=== PATIENT | male | born 1990 | race Caucasian/White ===

== ENCOUNTER 2023-03-24 07:55 | Outpatient (CLI) | payer OTHER, SELFPAY ==
[2023-03-24 08:18] LABS: Basophils % 0.7 %; Eosinophils # 0.2 10^3/uL (0.0-0.8); Eosinophils % 2.6 %; Hematocrit 45.4 % (37-53); Lymphocytes # 1.1 10^3/uL (0.8-4.8); Lymphocytes % 18.7 %; Mean Corpuscular HGB Conc 33.9 g/dL (30-55); Mean Corpuscular Hemoglobin 29.8 pg (27-33); Monocytes # 0.6 10^3/uL (0.2-0.9); Monocytes % 9.4 %; Neutrophils % 68.1 %; Nucleated Red Blood Cells % 0 %; Platelet Count 243 10^3/cmm (157-399); Red Blood Count 5.16 10^6/uL (3.85-5.65); Red Cell Distribution Width 13.1 % (12.1-15.1); White Blood Count 5.87 10^3/uL (3.29-11.43)
[2023-03-24 08:45] LABS: Alanine Aminotransferase 47 U/L (0-41); Albumin Level 4.1 g/dL (3.5-5.2); Alkaline Phosphatase 73 U/L (40-130); Aspartate Amino Transferase 27 U/L (0-40); Blood Urea Nitrogen 8 mg/dL (6-20); Calcium 9.3 mg/dL (8.5-10.5); Carbon Dioxide 26 mmol/L (22-29); Chloride 100 mmol/L (98-107); Chol HDL Ratio 8.76 mg/dL (1.0-5.00); Cholesterol 184 mg/dL (0-200); Globulin 2.9 g/dL (1.3-4.6); Glomerular Filtration Rate 110.7 mL/min (90-130); Glucose 273 mg/dL (65-115); HDL Cholesterol 21 mg/dL (60-100); Total Bilirubin 0.5 mg/dL (0.15-1.2); Triglycerides 647 mg/dL (0-150)
[2023-03-24 08:46] LABS: Potassium 3.8 mmol/L (3.5-5.1)
[2023-03-24 09:21] LABS: LDL Cholesterol Direct 89 mg/dL (0-100)
[2023-03-24 09:42] LABS: Anion Gap 13.8 (5-19); Osmolality Calculated 290 mOsm/kg (285-295); Sodium 136 mmol/L (136-145)
== END 2023-03-24 07:56 | disposition home or self-care (01) ==
LOC: LAB 07:56
PROVIDERS: Visit Provider Internal Medicine
DX: R79.89 Other specified abnormal findings of blood chemistry (principal); E23.7 Disorder of pituitary gland, unspecified; E03.9 Hypothyroidism, unspecified
CPT/HCPCS: 36415; 80053; 80061; 83721; 84403; 85025

== ENCOUNTER 2023-04-02 09:27 | Outpatient (CLI) | payer OTHER, SELFPAY ==
[2023-04-02 10:14] LABS: Viscosity Semen Normal
[2023-04-02 10:19] LABS: Epithelial Count Semen 0-4 /hpf; PH Semen 7.5 (7.0-8.0); Pathology Referral Yes; Red Blood Count Semen 0-4 /hpf; White Blood Count Semen 0-4 /hpf
[2023-04-02 10:24] LABS: Sperm Immotility 85 % (50-60); Sperm Non-Progressive Motility 10 % (5-10); Sperm Progressive Motility 5 % (31-34)
[2023-04-02 16:25] LABS: Sperm Vitality-% Live Sperm 65 %
[2023-04-02 19:55] LABS: Side 1 134
[2023-04-02 19:56] LABS: Side 2 146
== END 2023-04-02 09:28 | disposition home or self-care (01) ==
LOC: LAB 09:32
PROVIDERS: PCP Internal Medicine; Visit Provider Internal Medicine
DX: N46.9 Male infertility, unspecified (principal); E23.7 Disorder of pituitary gland, unspecified; R79.89 Other specified abnormal findings of blood chemistry
CPT/HCPCS: 80503; 89320

== ENCOUNTER 2023-07-09 13:22 | Outpatient (CLI) | payer OTHER, SELFPAY ==
[2023-07-09 13:50] LABS: Basophils % 0.7 %; Eosinophils # 0.2 10^3/uL (0.0-0.8); Eosinophils % 3.9 %; Hematocrit 42.5 % (37-53); Lymphocytes # 1.2 10^3/uL (0.8-4.8); Lymphocytes % 29.6 %; Mean Corpuscular HGB Conc 33.6 g/dL (30-55); Mean Corpuscular Hemoglobin 28.3 pg (27-33); Mean Corpuscular Volume 84.2 fl (82-101); Mean Platelet Volume 10.4 fL (7.4-10.4); Monocytes # 0.4 10^3/uL (0.2-0.9); Monocytes % 8.7 %; Neutrophils # 2.34 10^3/uL (1.8-7.7); Neutrophils % 56.9 %; Nucleated Red Blood Cells % 0 %; Platelet Count 264 10^3/cmm (157-399); Red Blood Count 5.05 10^6/uL (3.85-5.65); Red Cell Distribution Width 12.7 % (12.1-15.1); White Blood Count 4.12 10^3/uL (3.29-11.43)
[2023-07-09 14:10] LABS: Alanine Aminotransferase 40 U/L (0-41); Albumin Level 4.1 g/dL (3.5-5.2); Alkaline Phosphatase 70 U/L (40-130); Anion Gap 16.2 (5-19); Aspartate Amino Transferase 23 U/L (0-40); Blood Urea Nitrogen 11 mg/dL (6-20); Calcium 9.3 mg/dL (8.5-10.5); Carbon Dioxide 23 mmol/L (22-29); Chloride 106 mmol/L (98-107); Chol HDL Ratio 5.73 mg/dL (1.0-5.00); Cholesterol 149 mg/dL (0-200); Glomerular Filtration Rate 129.1 mL/min (90-130); Glucose 173 mg/dL (65-115); HDL Cholesterol 26 mg/dL (60-100); LDL Cholesterol Calculated 58 mg/dL (50-129); LDL HDL Ratio 2.23 RATIO (0.00-3.22); Osmolality Calculated 296 mOsm/kg (285-295); Potassium 4.2 mmol/L (3.5-5.1); Sodium 141 mmol/L (136-145); Total Bilirubin 0.7 mg/dL (0.15-1.2); Total Protein 7.1 g/dL (6.6-8.7); Triglycerides 323 mg/dL (0-150)
[2023-07-09 14:16] LABS: Testosterone Total 494.9 ng/dL (249-836)
== END 2023-07-09 13:23 | disposition home or self-care (01) ==
LOC: LAB 13:24
PROVIDERS: PCP Internal Medicine; Visit Provider Internal Medicine
DX: N46.9 Male infertility, unspecified (principal); E23.7 Disorder of pituitary gland, unspecified; R79.89 Other specified abnormal findings of blood chemistry
CPT/HCPCS: 36415; 80053; 80061; 84403; 85025

== ENCOUNTER 2023-10-08 09:56 | Outpatient (CLI) | payer OTHER, SELFPAY ==
[2023-10-08 10:47] LABS: Alanine Aminotransferase 30 U/L (0-41); Albumin Level 4.2 g/dL (3.5-5.2); Alkaline Phosphatase 65 U/L (40-130); Anion Gap 13.2 (5-19); Aspartate Amino Transferase 18 U/L (0-40); Blood Urea Nitrogen 10 mg/dL (6-20); Carbon Dioxide 23 mmol/L (22-29); Chloride 102 mmol/L (98-107); Chol HDL Ratio 6.09 mg/dL (1.0-5.00); Cholesterol 140 mg/dL (0-200); Globulin 2.9 g/dL (1.3-4.6); Glomerular Filtration Rate 110.7 mL/min (90-130); Glucose 179 mg/dL (65-115); HDL Cholesterol 23 mg/dL (60-100); LDL Cholesterol Calculated 47 mg/dL (50-129); LDL HDL Ratio 2.04 RATIO (0.00-3.22); Osmolality Calculated 282 mOsm/kg (285-295); Potassium 4.2 mmol/L (3.5-5.1); Prostate Specific Antigen Scr 0.19 ng/mL (0-4); Sodium 134 mmol/L (136-145); Testosterone Total 619.2 ng/dL (249-836); Total Bilirubin 0.5 mg/dL (0.15-1.2); Total Protein 7.1 g/dL (6.6-8.7); Triglycerides 349 mg/dL (0-150)
[2023-10-08 11:10] LABS: Sperm Count 135.5 mill/mL (40-160); Viscosity Semen High Viscosity; Volume Semen 1.5 mL (2-5)
[2023-10-08 11:11] LABS: Epithelial Count Semen 0-4 /hpf; Pathology Referral Yes; Red Blood Count Semen Rare /hpf; Sperm Immotility 50 % (50-60); Sperm Progressive Motility 40 % (31-34); White Blood Count Semen 0-4 /hpf
[2023-10-08 11:12] LABS: Sperm Non-Progressive Motility 10 % (5-10)
== END 2023-10-08 09:57 | disposition home or self-care (01) ==
LOC: LAB 09:58
PROVIDERS: Visit Provider Internal Medicine
DX: E29.1 Testicular hypofunction (principal); R79.89 Other specified abnormal findings of blood chemistry; E03.9 Hypothyroidism, unspecified; E23.7 Disorder of pituitary gland, unspecified; N46.9 Male infertility, unspecified
CPT/HCPCS: 36415; 80053; 80061; 80503; 84403; 89320; G0103

== ENCOUNTER → 2023-10-12 10:05 | Outpatient (BNVA) | payer OTHER, SELFPAY | PROVIDERS: Visit Provider Internal Medicine | DX: N46.9 Male infertility, unspecified (principal); E23.7 Disorder of pituitary gland, unspecified | CPT/HCPCS: 36415; 85025 ==

== ENCOUNTER 2024-02-28 16:26 | Outpatient (CLI) | payer OTHER, SELFPAY ==
[2024-02-28 18:15] LABS: Estmated Average Glucose 143; Hemoglobin A1C 6.6 % (4.0-6.0)
[2024-02-28 18:26] LABS: Alanine Aminotransferase 37 U/L (0-41); Alkaline Phosphatase 69 U/L (40-130); Aspartate Amino Transferase 22 U/L (0-40); Blood Urea Nitrogen 9 mg/dL (6-20); Calcium 9.1 mg/dL (8.5-10.5); Carbon Dioxide 26 mmol/L (22-29); Chloride 104 mmol/L (98-107); Chol HDL Ratio 6.38 mg/dL (1.0-5.00); Cholesterol 153 mg/dL (0-200); Free T4 Free Thyroxine 1.16 ng/dL (0.82-1.77); Globulin 2.6 g/dL (1.3-4.6); Glucose 197 mg/dL (65-115); HDL Cholesterol 24 mg/dL (60-100); Osmolality Calculated 294 mOsm/kg (285-295); Sodium 140 mmol/L (136-145); Thyroid Stimulating Hormone 0.53 uIU/mL (0.27-4.20); Total Bilirubin 0.3 mg/dL (0.15-1.2); Total Protein 6.6 g/dL (6.6-8.7); Triglycerides 502 mg/dL (0-150)
[2024-02-28 18:27] LABS: Anion Gap 14.1 (5-19); Potassium 4.1 mmol/L (3.5-5.1)
[2024-02-28 18:40] LABS: LDL Cholesterol Direct 84 mg/dL (0-100)
== END 2024-02-28 16:27 | disposition home or self-care (01) ==
LOC: LAB 16:27
PROVIDERS: Visit Provider Internal Medicine
DX: E29.1 Testicular hypofunction (principal); E03.9 Hypothyroidism, unspecified; E23.7 Disorder of pituitary gland, unspecified; E11.9 Type 2 diabetes mellitus without complications
CPT/HCPCS: 36415; 80053; 80061; 83036; 83721; 84403; 84439; 84443

== ENCOUNTER → 2024-03-03 12:53 | Outpatient (BNVA) | payer OTHER, SELFPAY | PROVIDERS: Visit Provider Internal Medicine | DX: E29.1 Testicular hypofunction (principal); E03.9 Hypothyroidism, unspecified; E23.7 Disorder of pituitary gland, unspecified; N46.9 Male infertility, unspecified; E11.9 Type 2 diabetes mellitus without complications; R79.89 Other specified abnormal findings of blood chemistry; E66.9 Obesity, unspecified; Z79.85 Long-term (current) use of injectable non-insulin antidiabetic drugs; Z79.890 Hormone replacement therapy; Z68.41 Body mass index [BMI] 40.0-44.9, adult | CPT/HCPCS: 36415; 85025 ==

== ENCOUNTER 2024-05-29 15:18 | Outpatient (CLI) | payer OTHER, SELFPAY ==
[2024-05-29 15:56] LABS: Basophils # 0.1 10^3/uL (0.0-0.1); Basophils % 0.8 %; Eosinophils # 0.2 10^3/uL (0.0-0.8); Eosinophils % 3.7 %; Hematocrit 46.4 % (37-53); Lymphocytes % 16.6 %; Mean Corpuscular HGB Conc 33.4 g/dL (30-55); Mean Corpuscular Volume 86.7 fl (82-101); Monocytes # 0.8 10^3/uL (0.2-0.9); Monocytes % 12.9 %; Neutrophils # 3.91 10^3/uL (1.8-7.7); Neutrophils % 65.7 %; Nucleated Red Blood Cells % 0 %; Platelet Count 237 10^3/cmm (157-399); Red Blood Count 5.35 10^6/uL (3.85-5.65); Red Cell Distribution Width 12.6 % (12.1-15.1); White Blood Count 5.96 10^3/uL (3.29-11.43)
[2024-05-29 16:16] LABS: Estmated Average Glucose 203; Hemoglobin A1C 8.7 % (4.0-6.0)
[2024-05-29 16:21] LABS: Creatinine Urine, Random 138 mg/dL (39-259); Microalbum Creatinine Ratio Ur 22 mg/dL (0-20); Microalbumin Random Urine 3 ug/dL (0-20)
[2024-05-29 16:22] LABS: Alanine Aminotransferase 42 U/L (0-41); Albumin Level 4.4 g/dL (3.5-5.2); Alkaline Phosphatase 70 U/L (40-130); Anion Gap 14.9 (5-19); Aspartate Amino Transferase 36 U/L (0-40); Blood Urea Nitrogen 12 mg/dL (6-20); Calcium 9.3 mg/dL (8.5-10.5); Carbon Dioxide 25 mmol/L (22-29); Chloride 102 mmol/L (98-107); Chol HDL Ratio 5.76 mg/dL (1.0-5.00); Cholesterol 144 mg/dL (0-200); Globulin 2.9 g/dL (1.3-4.6); Glucose 223 mg/dL (65-115); HDL Cholesterol 25 mg/dL (60-100); LDL Cholesterol Calculated 58 mg/dL (50-129); LDL HDL Ratio 2.32 RATIO (0.00-3.22); Osmolality Calculated 293 mOsm/kg (285-295); Potassium 3.9 mmol/L (3.5-5.1); Sodium 138 mmol/L (136-145); Testosterone Total 384.3 ng/dL (249-836); Total Bilirubin 0.7 mg/dL (0.15-1.2); Total Protein 7.3 g/dL (6.6-8.7); Triglycerides 303 mg/dL (0-150)
== END 2024-05-29 15:19 | disposition home or self-care (01) ==
PROVIDERS: PCP Student in an Organized Health Care Education/Training Program; Visit Provider Internal Medicine
DX: E29.1 Testicular hypofunction (principal); E03.9 Hypothyroidism, unspecified; E23.7 Disorder of pituitary gland, unspecified; N46.9 Male infertility, unspecified; E11.9 Type 2 diabetes mellitus without complications
CPT/HCPCS: 36415; 80053; 80061; 82044; 83036; 84403; 85025

== ENCOUNTER 2024-08-24 11:18 | Outpatient (CLI) | payer OTHER, SELFPAY ==
[2024-08-24 12:00] LABS: Basophils % 0.8 %; Eosinophils # 0.2 10^3/uL (0.0-0.8); Eosinophils % 3.7 %; Hematocrit 47.2 % (37-53); Lymphocytes # 1.1 10^3/uL (0.8-4.8); Lymphocytes % 23.1 %; Mean Corpuscular HGB Conc 33.7 g/dL (30-55); Mean Corpuscular Hemoglobin 28.5 pg (27-33); Mean Corpuscular Volume 84.6 fl (82-101); Mean Platelet Volume 11.2 fL (7.4-10.4); Monocytes # 0.5 10^3/uL (0.2-0.9); Monocytes % 9.4 %; Neutrophils # 3.08 10^3/uL (1.8-7.7); Neutrophils % 62.8 %; Nucleated Red Blood Cells % 0 %; Platelet Count 242 10^3/cmm (157-399); Red Blood Count 5.58 10^6/uL (3.85-5.65); Red Cell Distribution Width 12.2 % (12.1-15.1)
[2024-08-24 12:40] LABS: Alanine Aminotransferase 50 U/L (0-41); Albumin Level 4.3 g/dL (3.5-5.2); Alkaline Phosphatase 82 U/L (40-130); Aspartate Amino Transferase 43 U/L (0-40); Blood Urea Nitrogen 10 mg/dL (6-20); Calcium 9.4 mg/dL (8.5-10.5); Carbon Dioxide 25 mmol/L (22-29); Chloride 99 mmol/L (98-107); Free T4 Free Thyroxine 1.03 ng/dL (0.82-1.77); Glomerular Filtration Rate 128.3 mL/min (90-130); Glucose 308 mg/dL (65-115); Osmolality Calculated 293 mOsm/kg (285-295); Sodium 136 mmol/L (136-145); Testosterone Total 567.3 ng/dL (249-836); Thyroid Stimulating Hormone 3.11 uIU/mL (0.27-4.20); Total Bilirubin 0.5 mg/dL (0.15-1.2); Total Protein 7.3 g/dL (6.6-8.7)
== END 2024-08-24 11:19 | disposition home or self-care (01) ==
PROVIDERS: PCP Student in an Organized Health Care Education/Training Program; Visit Provider Internal Medicine
DX: E29.1 Testicular hypofunction (principal); E03.9 Hypothyroidism, unspecified; E23.7 Disorder of pituitary gland, unspecified; N46.9 Male infertility, unspecified; E11.9 Type 2 diabetes mellitus without complications; E66.9 Obesity, unspecified
CPT/HCPCS: 36415; 80053; 84403; 84439; 84443; 85025

== ENCOUNTER 2024-11-24 14:04 | Outpatient (CLI) | payer OTHER, SELFPAY ==
[2024-11-24 14:58] LABS: Hematocrit 47.8 % (37-53); Hemoglobin 16.20 g/dL (11.27-16.99); Mean Corpuscular HGB Conc 33.9 g/dL (30-55); Mean Corpuscular Hemoglobin 28.9 pg (27-33); Mean Corpuscular Volume 85.4 fl (82-101); Nucleated Red Blood Cells % 0 %; Platelet Count 262 10^3/cmm (157-399); Red Blood Count 5.60 10^6/uL (3.85-5.65); White Blood Count 6.42 10^3/uL (3.29-11.43)
[2024-11-24 15:32] LABS: Alanine Aminotransferase 40 U/L (0-41); Albumin Level 4.5 g/dL (3.5-5.2); Alkaline Phosphatase 72 U/L (40-130); Anion Gap 15.2 (5-19); Aspartate Amino Transferase 28 U/L (0-40); Blood Urea Nitrogen 9 mg/dL (6-20); Calcium 9.5 mg/dL (8.5-10.5); Carbon Dioxide 25 mmol/L (22-29); Chloride 103 mmol/L (98-107); Cholesterol 150 mg/dL (0-200); Free T4 Free Thyroxine 0.96 ng/dL (0.82-1.77); Globulin 2.9 g/dL (1.3-4.6); Glucose 181 mg/dL (65-115); HDL Cholesterol 25 mg/dL (60-100); Osmolality Calculated 291 mOsm/kg (285-295); Potassium 4.2 mmol/L (3.5-5.1); Sodium 139 mmol/L (136-145); Thyroid Stimulating Hormone 4.83 uIU/mL (0.27-4.20); Total Protein 7.4 g/dL (6.6-8.7); Triglycerides 342 mg/dL (0-150)
== END 2024-11-24 14:05 | disposition home or self-care (01) ==
PROVIDERS: PCP Student in an Organized Health Care Education/Training Program; Visit Provider Internal Medicine
DX: E66.9 Obesity, unspecified (principal); E11.9 Type 2 diabetes mellitus without complications; N46.9 Male infertility, unspecified; E23.7 Disorder of pituitary gland, unspecified; E03.9 Hypothyroidism, unspecified
CPT/HCPCS: 36415; 80053; 80061; 84403; 84439; 84443; 85025